=== PATIENT | female | born 1995 | race Caucasian/White ===

== ENCOUNTER → 2025-03-23 14:02 | Outpatient (REF) | payer OTHER, SELFPAY | LOC: RAD 14:02 | PROVIDERS: ATTENDING PHYSICIAN Advanced Practice Midwife | DX: O36.80X0 Pregnancy with inconclusive fetal viability, not applicable or unspecified (principal) | CPT/HCPCS: 76801 ==

== ENCOUNTER → 2025-04-01 08:42 | Outpatient (REF) | payer OTHER, SELFPAY | LOC: PNTC 08:42 | PROVIDERS: ATTENDING PHYSICIAN Student in an Organized Health Care Education/Training Program | DX: Z36.0 Encounter for antenatal screening for chromosomal anomalies (principal); Z36.82 Encounter for antenatal screening for nuchal translucency | CPT/HCPCS: 76801; 76813 ==

== ENCOUNTER → 2025-04-26 16:29 | Outpatient (REF) | payer OTHER, SELFPAY | LOC: PNTC 16:29 | PROVIDERS: ATTENDING PHYSICIAN Student in an Organized Health Care Education/Training Program | DX: M05.9 Rheumatoid arthritis with rheumatoid factor, unspecified (principal) | CPT/HCPCS: 76805 ==

== ENCOUNTER → 2025-05-31 13:20 | Outpatient (REF) | payer OTHER, SELFPAY | LOC: PNTC 13:20 | PROVIDERS: ATTENDING PHYSICIAN Student in an Organized Health Care Education/Training Program | DX: M05.60 Rheumatoid arthritis of unspecified site with involvement of other organs and systems (principal); O35.5XX0 Maternal care for (suspected) damage to fetus by drugs, not applicable or unspecified; O99.712 Diseases of the skin and subcutaneous tissue complicating pregnancy, second trimester | CPT/HCPCS: 76811 ==

== ENCOUNTER → 2025-07-15 09:25 | Outpatient (REF) | payer OTHER, SELFPAY | LOC: PNTC 09:25 | PROVIDERS: ATTENDING PHYSICIAN Obstetrics & Gynecology | DX: M05.9 Rheumatoid arthritis with rheumatoid factor, unspecified (principal); O35.5XX0 Maternal care for (suspected) damage to fetus by drugs, not applicable or unspecified; O99.113 Other diseases of the blood and blood-forming organs and certain disorders involving the immune mechanism complicating pregnancy, third trimester | CPT/HCPCS: 76816 ==

== ENCOUNTER → 2025-07-29 15:21 | Outpatient (REF) | payer OTHER, SELFPAY | LOC: PNTC 15:21 | PROVIDERS: ATTENDING PHYSICIAN Obstetrics & Gynecology | DX: O35.5XX0 Maternal care for (suspected) damage to fetus by drugs, not applicable or unspecified (principal) | CPT/HCPCS: 59025 ==

== ENCOUNTER → 2025-08-12 09:35 | Outpatient (REF) | payer OTHER, SELFPAY | LOC: PNTC 09:35 | PROVIDERS: ATTENDING PHYSICIAN Obstetrics & Gynecology | DX: M05.9 Rheumatoid arthritis with rheumatoid factor, unspecified (principal); O35.5XX0 Maternal care for (suspected) damage to fetus by drugs, not applicable or unspecified; O99.113 Other diseases of the blood and blood-forming organs and certain disorders involving the immune mechanism complicating pregnancy, third trimester | CPT/HCPCS: 76816 ==

== ENCOUNTER → 2025-09-09 09:14 | Outpatient (REF) | payer OTHER, SELFPAY | LOC: PNTC 09:14 | PROVIDERS: ATTENDING PHYSICIAN Obstetrics & Gynecology | DX: M05.9 Rheumatoid arthritis with rheumatoid factor, unspecified (principal); O35.5XX0 Maternal care for (suspected) damage to fetus by drugs, not applicable or unspecified; O99.113 Other diseases of the blood and blood-forming organs and certain disorders involving the immune mechanism complicating pregnancy, third trimester | CPT/HCPCS: 76816 ==

== ENCOUNTER → 2025-09-28 09:46 | Outpatient (REF) | payer OTHER, SELFPAY | LOC: PNTC 09:46 | PROVIDERS: ATTENDING PHYSICIAN Obstetrics & Gynecology | DX: O36.8330 Maternal care for abnormalities of the fetal heart rate or rhythm, third trimester, not applicable or unspecified (principal) | CPT/HCPCS: 59025 ==